=== PATIENT | male | born 1990 | race Asian ===

== ENCOUNTER 2019-03-17 19:32 | Emergency (ER) | payer BC ==
[~2019-03-17] VITALS: Ht 162.6 cm; Wt 67.6 kg
[2019-03-17 20:09] VITALS: BP 120/63
[2019-03-17] MEDS ORDERED: AMOX875T PO (21:51)
--- NOTE | 2019-03-17 21:51 | PHYS DOC ---
Past Medical History Past Medical History: No Pertinent History (RAMBO MOORE APRN) Alcohol Use: None Drug Use: None (RAMBO MOORE APRN) Attending Signature I have participated in the care of this patient and I have reviewed and agree with all pertinent clinical information above including history, exam, and recommendations. (AG WORLEY MD) Adult General Chief Complaint Chief Complaint: SORE THROAT HPI HPI Patient is a 28 year old male patient complains of sore throat and fever patient reports for the last day he has had a fever, sore throat. Reports no known presents from them have been ill. States he has not tried taking medications, he just came because he was concerned about what was causing his throat to be sore. Denies any rash, denies any cough, denies any nausea or vomiting (RAMBO MOORE APRN) Review of Systems Review of Systems Constitutional: Does report chills today, states has not checked his temperature at home.[] Eyes: Denies change in visual acuity, redness, or eye pain [] HENT: Denies nasal congestion or does report sore throat starting this mo rning.[] Respiratory: Denies cough or shortness of breath [] Cardiovascular: No additional information not addressed in HPI [] GI: Denies abdominal pain, nausea, vomiting, bloody stools or diarrhea [] Musculoskeletal: Denies back pain or joint pain [] Integument: Denies rash or skin lesions [] All other systems were reviewed and found to be within normal limits, except as documented in this note. (RAMBO MOORE APRN) Allergies Allergies Allergies Coded Allergies Type Severity Reaction Last Updated Verified No Known Drug Allergies 03/17/19 No (AG WORLEY MD) Physical Exam Physical Exam Constitutional: Well developed, well nourished, no acute distress, non-toxic appearance. [] HENT: Normocephalic, atraumatic, bilateral external ears normal, oropharynx moist, no oral exudates, nose normal. Tonsils 2+, erythematous, Prilosec due to right tonsil.[] Eyes: PERRLA, EOMI, conjunctiva normal, no discharge. [] Neck: Normal range of motion, no tenderness, supple, no stridor. [] Cardiovascular:Heart rate regular rhythm, no murmur [] Lungs & Thorax: Bilateral breath sounds clear to auscultation [] Skin: Warm, dry, no erythema, no rash. [] Back: No tenderness, no CVA tenderness. [] Extremities: No tenderness, no cyanosis, no clubbing, ROM intact, no edema. [] Neurologic: Alert and oriented X 3, normal motor function, normal sensory fu nction, no focal deficits noted. [] Psychologic: Affect normal, judgement normal, mood normal. [] (RAMBO MOORE APRN) Current Patient Data Vital Signs Vital Signs Date Time Temp Pulse Resp B/P (MAP) Pulse Ox O2 Delivery O2 Flow Rate FiO2 03/17/19 20:09 100.0 98 18 120/63 (82) 97 Room Air 100.0 (AG WORLEY MD) Lab Values Laboratory Tests Test 03/17/19 20:13 Group A Streptococcus Rapid Positive (NEGATIVE) (AG WORLEY MD) EKG EKG [] (RAMBO MOORE APRN) Radiology/Procedures Radiology/Procedures [] (RAMBO MOORE APRN) Course & Med Decision Making Course & Med Decision Making Pertinent Labs and Imaging studies reviewed. (See chart for details) [Given positive rapid strep, sore throat, we'll provide antibiotics for pharyngitis. Patient to continue hydration, NSAIDs for fever and pain control. (RAMBO MOORE APRN) Dragon Disclaimer Dragon Disclaimer This electronic medical record was generated, in whole or in part, using a voice recognition dictation system. (RAMBO MOORE APRN) Departure Departure Impression: Primary Impression: Strep pharyngitis Disposition: HOME, SELF-CARE Condition: STABLE Referrals: NO PCP (PCP) Patient Instructions: Strep Throat Additional Instructions: As we discussed, take the antibiotic until it is gone even if you are feeling better, take them until they are finished. After he had been on the antibiotics for 2 full days, replace your toothbrush. You should take Tylenol or ibuprofen for fever and for discomfort Scripts Amoxicillin (AMOXICILLIN) 875 Mg Tablet 875 MG PO BID for 10 Days, #20 TAB 0 Refills Prov: RAMBO MOORE APRN 03/17/19 RAMBO MOORE APRN Mar 17, 2019 21:51 AG WORLEY MD Mar 18, 2019 07:55
== END 2019-03-17 22:13 | disposition home or self-care (01) ==
LOC: ER 19:32
DX: J02.0 Streptococcal pharyngitis (principal); B95.5 Unspecified streptococcus as the cause of diseases classified elsewhere; R50.9 Fever, unspecified
CPT/HCPCS: 87880; 99283